=== PATIENT | female | born 1970 | race Caucasian/White ===

== ENCOUNTER → 2016-11-17 | Outpatient (CLI) | payer BC ==
--- NOTE | 2016-11-17 11:19 | RADIOLOGY REPORT (SQ) ---
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 TECHNIQUE: Supine radiographic image of the abdomen acquired. LIMITATIONS: None. FINDINGS: BOWEL GAS PATTERN: Normal bowel gas pattern. No dilated loops. No significant constipatio n. CALCIFICATIONS: No suspicious calcifications. SOFT TISSUES: No gross mass or suggestion of organomegaly. HARDWARE: Clips right upper quadrant post cholecystectomy. BONES: No acute fracture. No worrisome bone lesions. OTHER: No other significant finding. IMPRESSION: Grossly nonobstructive bowel gas pattern. Clips right upper quadrant post cholecystectomy TECHNICAL DOCUMENTATION: JOB ID: [id number] [employer]- All Rights Reserved
== END ==
LOC: OD 10:42
PROVIDERS: ATTEND Internal Medicine Gastroenterology
DX: K50.10 Crohn's disease of large intestine without complications (principal); K59.01 Slow transit constipation
CPT/HCPCS: 74000

== ENCOUNTER → 2016-11-23 | Outpatient (CLI) | payer BC ==
--- NOTE | 2016-11-27 11:59 | RADIOLOGY REPORT (SQ) ---
EXAM DESCRIPTION: CT ABD/PELVIS WITH IV ORAL COMPLETED DATE/TIME: 11/23/2016 8:50 am REASON FOR STUDY: RLQ PAIN (R10.31), CROHN'S DISEASE (K50.10), CONSTIPATION (K59.01) R10.31 RIGHT L OWER QUADRANT PAIN K50.10 CROHN'S DISEASE OF LARGE INTESTINE WITHOUT COMPLICATION K59.01 SLOW TRANS IT CONSTIPATION COMPARISON: None. TECHNIQUE: CT scan of the abdomen and pelvis performed using helical scanning technique with dynamic intravenous contrast injection. Oral contrast. Images reviewed with lung, soft tissue, and bone win dows. Reconstructed coronal and sagittal MPR images reviewed. Delayed images for evaluation of the ur inary system also acquired. All images stored on PACS. All CT scanners at this facility use dose modulation, iterative reconstruction, and/or weight based d osing when appropriate to reduce radiation dose to as low as reasonably achievable (ALARA). [facility]: Dose Right [facility]: CareDose [facility]: Dose Right [facility]: Teradose 4D [facility]: [employer] CONTRAST TYPE AND DOSE: contrast/concentration: Isovue 370.00 mg/ml; Total Contrast Delivered: 100.0 ml; Total Saline Delivered: 72.0 ml RENAL FUNCTION: None required. The patient is less than 50 years old. RADIATION DOSE: Up-to-date CT equipment and radiation dose reduction techniques were employed. CTDIv ol: 10.6 - 12.0 mGy. DLP: 1265 mGy-cm.. LIMITATIONS: None. FINDINGS: LOWER CHEST: No significant findings. No nodules or infiltrates. LIVER: Normal size. No masses. No dilated ducts. SPLEEN: Normal size. No focal lesions. PANCREAS: No masses. No significant calcifications. No adjacent inflammation or peripancreatic fluid collections. Pancreatic duct not dilated. GALLBLADDER: Surgically absent. ADRENAL GLANDS: No significant masses or asymmetry. RIGHT KIDNEY AND URETER: No solid masses. No significant calcifications. No hydronephrosis or hyd roureter. LEFT KIDNEY AND URETER: No solid masses. No significant calcifications. No hydronephrosis or hydr oureter. AORTA AND VESSELS: No aneurysm. No dissection. Renal arteries, SMA, celiac without stenosis. RETROPERITONEUM: No retroperitoneal adenopathy, hemorrhage or masses. BOWEL AND PERITONEAL CAVITY: There is an area of thickening of the wall of the sigmoid colon. This i s seen best on image 77 of the axial series. APPENDIX: Not identified. PELVIS: The uterus is absent. There is is 37 mm right adnexal cyst. ABDOMINAL WALL: No masses. No hernias. BONES: No significant or acute findings. OTHER: No other significant finding. IMPRESSION: 1. There is thickening of a section of the sigmoid colon consistent with history of Slipper Maker hn's disease. 2. There is a 37 mm right adnexal cyst. TECHNICAL DOCUMENTATION: JOB ID: [id number] Quality ID # [id number]: Final reports with documentation of one or more dose reduction techniques (e.g., Au tomated exposure control, adjustment of the mA and/or kV according to patient size, use of iterative reconstruction technique) 2010 [employer]- All Rights Reserved
== END ==
LOC: RAD 08:00
PROVIDERS: ATTEND Internal Medicine Gastroenterology
DX: R10.31 Right lower quadrant pain (principal); K50.10 Crohn's disease of large intestine without complications; K59.01 Slow transit constipation
CPT/HCPCS: 74177

== ENCOUNTER 2018-04-25 22:01 | Emergency (ER) | payer BC ==
[2018-04-25] MEDS ORDERED: ONDANSETRON HCL INJ/PF 4 MG/2 ML SDV IV ONE (22:59)
[2018-04-25] MEDS ORDERED: NORMAL SALINE 1000 ML 1,000 ML IV ONE (22:59)
[2018-04-25] MEDS ORDERED: DICYCLOMINE HCL INJ 20 MG/2 ML AMPULE IM ONE (22:59)
[2018-04-25 23:39] LABS: ABSOLUTE BASOPHILS # (AUTO) 0.1 10^3/uL (0.0-0.2); ABSOLUTE EOSINOPHILS # (AUTO) 0.1 10^3/uL (0.0-0.6); ABSOLUTE LYMPHOCYTES (AUTO) 2.5 10^3/uL (0.5-4.7); ABSOLUTE MONOCYTES (AUTO) 0.7 10^3/uL (0.1-1.4); ABSOLUTE NEUT (AUTO) 6.8 10^3/uL (1.7-8.2); EOSINOPHILS % (AUTO) 1.1 % (0-6); HEMATOCRIT 38.3 % (36.0-47.0); HEMOGLOBIN 13.1 g/dL (12.0-15.5); LYMPHOCYTES % (AUTO) 24.7 % (13-45); MEAN CORPUSCULAR HEMOGLOBIN 32.4 pg (27.0-33.4); MEAN CORPUSCULAR HGB CONC 34.2 g/dL (32.0-36.0); MEAN CORPUSCULAR VOLUME 95 fl (80-97); MONOCYTES % (AUTO) 6.7 % (3-13); PLATELET COUNT 216 10^3/uL (150-450); RED BLOOD COUNT 4.05 10^6/uL (3.72-5.28); RED CELL DISTRIBUTION WIDTH 13.9 % (11.5-14.0); SEGMENTED NEUTROPHILS % (AUTO) 66.5 % (42-78); TOTAL CELLS COUNTED % (AUTO) 100 %; WHITE BLOOD COUNT 10.2 10^3/uL (4.0-10.5)
[2018-04-25] MEDS ORDERED: MORPHINE SULFATE 10 MG/ML INJ IV ONE (23:42)
[2018-04-25 23:51] LABS: APPEARANCE,URINE CLEAR; BILIRUBIN,URINE NEGATIVE (NEGATIVE); COLOR,URINE STRAW; GLUCOSE, URINE NEGATIVE (NEGATIVE); KETONES,URINE NEGATIVE (NEGATIVE); LEUKOCYTE ESTERASE,URINE NEGATIVE (NEGATIVE); NITRITE,URINE NEGATIVE (NEGATIVE); PROTEIN,URINE NEGATIVE (NEGATIVE); URINE SPECIFIC GRAVITY 1.008; UROBILINOGEN,URINE NEGATIVE mg/dL (<2.0)
[2018-04-25 23:57] LABS: ALANINE AMINOTRANSFERASE 79 U/L (9-52); ALBUMIN 4.2 g/dL (3.5-5.0); ALKALINE PHOSPHATASE 84 U/L (38-126); ANION GAP 8 (5-19); ASPARTATE AMINO TRANSFERASE 47 U/L (14-36); BILIRUBIN,DIRECT 0.1 mg/dL (0.0-0.4); BLOOD UREA NITROGEN 17 mg/dL (7-20); CALCIUM 9.7 mg/dL (8.4-10.2); CARBON DIOXIDE 27 mmol/L (22-30); CHLORIDE 104 mmol/L (98-107); GLUCOSE 81 mg/dL (75-110); POTASSIUM 4.1 mmol/L (3.6-5.0); SODIUM 138.9 mmol/L (137-145); TOTAL PROTEIN 7.1 g/dL (6.3-8.2)
--- NOTE | 2018-04-26 01:18 | RADIOLOGY REPORT (SQ) ---
EXAM DESCRIPTION: CT ABDOMEN PELVIS WITH IV CONTRAST COMPLETED DATE/TME: 04/26/2018 00:00 CLINICAL HISTORY: 47 years, Female, abdominal pain COMPARISON: 11/23/2016 TECHNIQUE: Axial CT images of the abdomen and pelvis were obtained after the administration of IV and oral contrast. Sagittal and coronal reformats were performed. [facility] 1677 Images stored on PACS. All CT scanners at this facility use dose modulation, iterative reconstruction, and/or weight based dosing when appropriate to reduce radiation dose to as low as reasonably achievable (ALARA). [facility]: Dose Right [facility]: CareDose [facility]: Dose Right [facility]: Teradose 4D [facility]: [employer] LIMITATIONS: None. FINDINGS: The lung bases are clear. Cholecystectomy. The liver, pancreas, spleen, and adrenal glands are unremarkable. Both kidneys appear unremarkable with no evidence of hydronephrosis or hydroureter. There is no intraperitoneal free air or fluid. There is no lymphadenopathy. The abdominal aorta is normal in caliber. There is a moderate size hiatal hernia. The small bowel is unremarkable. The appendix is not uniquely identified, however there are no pericecal inflammatory changes. The colon contains a moderate amount of stool. There is marked distention of the rectum with stool with minimal adjacent stranding. Hysterectomy. The urinary bladder is unremarkable. There are no lytic or blastic bone lesions. IMPRESSION: Marked distention of the rectum with stool with mild adjacent stranding, suggestive of mild inflammation. Moderate size hiatal hernia. TECHNICAL DOCUMENTATION: Quality ID # 436: Final reports with documentation of one or more dose reduction techniques (e.g., Automated exposure control, adjustment of the mA and/or kV according to patient size, use of iterative reconstruction technique) copyright 2011 [employer]- All Rights Reserved
[2018-04-26] MEDS ORDERED: MORPHINE SULFATE 10 MG/ML INJ IV ONE (01:54)
[2018-04-26] MEDS ORDERED: LIDOCAINE 2% JELLY 5 ML TUBE TOP ONE (01:54)
[2018-04-26] MEDS ORDERED: MINERAL OIL 30 ML UDCUP PR ONE (03:37)
--- NOTE | 2018-04-26 03:39 | ER Document Report ---
ED General - General Chief Complaint: Lower Abdominal Pain Stated Complaint: ABDOMINAL PAIN Time Seen by Provider: 04/25/18 22:43 Primary Care Provider: DINAH COLEMAN MD [Primary Care Provider] - Follow up in 3-5 days Notes: Patient is a pleasant 47-year-old female presents with complaint of some abdominal cramping type pain in the pelvic and lower abdomen area. She says she feels like the blood pressure pushing into her rectal area. She has also noticed some blood coming from her stool. She said that she is had watery stools now for a few weeks. She saw her GI doctor, Dr. Santoyo. She has a history of Crohn's and IBS. He placed her on steroids. He also placed her Clobetasol. She denies any fevers. No vomiting. No other complaints at this time. No history of fistulas or significant comp occasions from her Crohn's. TRAVEL OUTSIDE OF THE [place] IN LAST 30 DAYS: No - Related Data Allergies/Adverse Reactions: No Known Allergies Allergy (Verified 04/25/18 22:14) Past Medical History - Social History Smoking Status: Never Smoker Chew tobacco use (# tins/day): No Frequency of alcohol use: None Drug Abuse: None Family History: Reviewed & Not Pertinent Patient has suicidal ideation: No Patient has homicidal ideation: No - Past Medical History Cardiac Medical History: Denies: Hx Pulmonary Embolism Pulmonary Medical History: Reports: Hx Asthma - Last attack 1990, Hx Bronchitis - May 2011 Denies: Hx COPD, Hx Pneumonia, Hx Respiratory Failure, Hx Sleep Apnea, Hx Tuberculosis Neurological Medical History: Denies: Hx Seizures Renal/ Medical History: Reports: Hx Ovarian Cysts. Denies: Hx Peritoneal Dialysis, Hx Pelvic Inflammatory Disease Malignancy Medical History: Denies: Hx Breast Cancer, Hx Cervical Cancer, Hx Leukemia, Hx Lung Cancer, Hx Ovarian Cancer GI Medical History: Reports: Hx Crohn's Disease, Hx Irritable Bowel Traumatic Medical History: Reports: Hx Fractures - Rt ankle 4th grade Infectious Medical History: Denies: Hx HIV Past Surgical History: Reports: Hx Cholecystectomy, Hx Tubal Ligation. Denies: Hx Pacemaker Review of Systems - Review of Systems Notes: My Normal Review Basic REVIEW OF SYSTEMS: CONSTITUTIONAL : Denies fever, chills, or sweats. Denies recent illness. EENT: Denies eye, ear, throat, or mouth pain or symptoms. Denies nasal or sinus congestion. CARDIOVASCULAR: Denies chest pain. RESPIRATORY: Denies cough, cold, or chest congestion. Denies shortness of breath, difficulty breathing, or wheezing. GASTROINTESTINAL: Cramping type pain in lower abdomen. Some blood in stool. GENITOURINARY: Denies difficulty urinating, painful urination, burning, frequency, or blood in urine. MUSCULOSKELETAL: Denies neck or back pain or joint pain or swelling. SKIN: Denies rash or skin lesions. NEUROLOGICAL: Denies altered mental status or loss of consciousness. Denies headache. Denies weakness or paralysis or loss of use of either side. Denies problems with gait or speech. Denies sensory or motor loss. ALL OTHER SYSTEMS REVIEWED AND NEGATIVE. Physical Exam - Vital signs Vitals: Temp Pulse Resp BP Pulse Ox 97.5 F 89 20 159/100 H 100 04/25/18 22:13 04/25/18 22:13 04/25/18 22:13 04/25/18 22:13 04/25/18 22:13 - Notes Notes: General Appearance: Well nourished, alert, cooperative, no acute distress, m oderate obvious discomfort. Vitals: reviewed, See vital signs table. Head: no swelling or tenderness to the head Eyes: PERRL, EOMI, Conjuctiva clear Mouth: No decreasd moisture Lungs: No wheezing, No rales, No rhonci, No accessory muscle use, good air exchange bilaterally. Heart: Normal rate, Regular rythm, No murmur, no rub Abdomen: Normal BS, soft, No rigidity, No abdominal tenderness, No guarding, no rebound, no abdominal masses, no organomegaly Rectal: Large claylike stool ball on digital rectal exam with streaks of maroon colored stool. Extremities: strength 5/5 in all extremities, good pulses in all extremities, no swelling or tenderness in the extremities, no edema. Skin: warm, dry, appropriate color, no rash Neuro: speech clear, oriented x 3, normal affect, responds appropriately to questions. Course - Re-evaluation Re-evalutation: 04/26/18 03:[address] scan she does have a large stool ball that is causing fecal impaction of the rectum. This is likely why she is having diarrhea as she is probably just having liquid stools going around this large stool ball in the rectum. I did do a rectal exam. She does have some maroon colored stools. I therefore did a gentle digital disimpaction and was able to get out some stool and break out a lot of stools in the rectum. I feel that it is appropriate to do a enema at this time. Informed the patient that if she is having significant pressure pain on enema than to have the nurse stop right away and to release of fluid. I informed her that this is not uncomfortable than to hold the fluid as long as she can to hopefully help relieve this fecal impaction. 04/26/18 06:51 After the enema I did do some further digital disimpaction was able to get a significant amount of stool. Patient's not having any further blood in the rectum. There is just some maroon colored blood on the initial distal aspect of stool that was coming from the rectum. She again has no further bleeding at this time. Her pain is much improved she says she feels some relief. Informed her she still has stool in her rectum. We will place her on Colace suppositories and have her take an fibrous augmentation and drink water. I will have her continue medications as prescribed by her doctor for her Crohn's. Encouraged to call her GI doctor today for close follow-up appointment. I informed her that she should still have a very low threshold to return to ER if she has recurrent bleeding from her rectum, recurring pain, fevers, or if she feels she is worsening in any way. Patient agrees with plan will be discharged home. Dictation of this chart was performed using voice recognition software; therefore, there may be some unintended grammatical errors. - Vital Signs Vital signs: Temp Pulse Resp BP Pulse Ox 97.9 F 73 17 120/80 97 04/26/18 06:34 04/26/18 06:34 04/26/18 06:34 04/26/18 06:34 04/26/18 06:34 - Laboratory Result Diagrams: 04/25/18 23:25 04/25/18 23:25 Laboratory results interpreted by me: 04/25/18 04/25/18 23:25 23:29 AST 47 H ALT 79 H Urine Blood SMALL H Discharge - Discharge Clinical Impression: Fecal impaction in rectum, Abdominal pain, Hematochezia Condition: Good Disposition: HOME, SELF-CARE Additional Instructions: You have a large amount of stool in the rectum causing a impaction in the rectum. We cleared some of this with an enema and also with manual disimpaction. Hopefully you will have several bowel movements over the next 24 hours. Please use a glycerin suppository as prescribed. Please drink lots of water. Avoid caffeinated liquids. Avoid fried foods and fatty foods. Please take Metamucil once a day. Please call your GI physician, Dr. Santoyo, to make a close follow-up appointment. Please have a low threshold to return to the ER if you have recurrent blood coming from your rectum, worsening pain, feve rs, or feel that you are worsening in any way. Prescriptions: RX: Glycerin 1 each RC BID #[id number] supp.rect Forms: Special Work Note, Return to Work Referrals: DINAH COLEMAN MD [Primary Care Provider] - Follow up in 3-5 days
[2018-04-26 06:37] VITALS: BP 120/80
== END 2018-04-26 06:38 | disposition home or self-care (01) ==
LOC: ER 22:01
DX: K56.41 Fecal impaction (principal); K92.1 Melena; R10.30 Lower abdominal pain, unspecified; R10.2 Pelvic and perineal pain; R19.7 Diarrhea, unspecified; Z90.49 Acquired absence of other specified parts of digestive tract; Z98.51 Tubal ligation status
CPT/HCPCS: 96376; 99284; 96361; 96374; 96375; 36415; 83690; 85025; 80053; 81001; 74177; J0500; J3490; J2270; J2405; J7030

== ENCOUNTER 2019-05-07 08:34 | Emergency (ER) | payer BC ==
[2019-05-07] MEDS ORDERED: ALBUTEROL SULFATE HFA (90 MCG/PUFF) 8 GM MDI (1 MDI/ER DISP) IH ONE (09:06)
[2019-05-07] MEDS ORDERED: ACETAMINOPHEN 325 MG TABLET PO ONE (09:08)
--- NOTE | 2019-05-07 09:11 | ER Document Report ---
ED Medical Screen (RME) - General Chief Complaint: Breathing Difficulty Stated Complaint: DIFFICULTY BREATHING Time Seen by Provider: 05/07/19 09:06 Primary Care Provider: DINAH COLEMAN MD [Primary Care Provider] - Follow up as needed Mode of Arrival: Ambulatory Information source: Patient Notes: 48-year-old female with history of asthma Crohn's IBS and pneumonia presents emergency department with complaints of chest heaviness that started last night. She also complains of a headache for the past 3 days. She reports it does not feel like her typical headache related to allergies. She has used Flonase and her inhaler without relief of symptoms. Denies COVID exposure. Patient reports she works at [employer] and they have been utilizing social Unbxdancing but they did have a possible exposure recently. Patient reports she was nowhere near the person. Denies fever vomiting reports some diarrhea but that is normal due to her IBS and Crohn's. I have greeted and performed a rapid initial assessment of this patient. A comprehensive ED assessment and evaluation of the patient, analysis of test results and completion of the medical decision making process will be conducted by additional ED providers. TRAVEL OUTSIDE OF THE [place] IN LAST 30 DAYS: No - Related Data Allergies/Adverse Reactions: No Known Allergies Allergy (Verified 05/07/19 08:50) Past Medical History - Past Medical History Cardiac Medical History: Denies: Hx Pulmonary Embolism Pulmonary Medical History: Reports: Hx Asthma - Last attack 1990, Hx Bronchitis - May 2011 Denies: Hx COPD, Hx Pneumonia, Hx Respiratory Failure, Hx Sleep Apnea, Hx Tuberculosis Neurological Medical History: Denies: Hx Seizures Renal/ Medical History: Reports: Hx Ovarian Cysts. Denies: Hx Peritoneal Dialysis, Hx Pelvic Inflammatory Disease Malignancy Medical History: Denies: Hx Breast Cancer, Hx Cervical Cancer, Hx Leukemia, Hx Lung Cancer, Hx Ovarian Cancer GI Medical History: Reports: Hx Crohn's Disease, Hx Irritable Bowel Traumatic Medical History: Reports: Hx Fractures - Rt ankle 4th grade Infectious Medical History: Denies: Hx HIV Past Surgical History: Reports: Hx Cholecystectomy, Hx Tubal Ligation. Denies: Hx Pacemaker Physical Exam - Vital signs Vitals: Temp Pulse Resp BP Pulse Ox 97.9 F 78 18 146/88 H 98 05/07/19 08:34 05/07/19 08:34 05/07/19 08:34 05/07/19 08:34 05/07/19 08:34 Course - Vital Signs Vital signs: Temp Pulse Resp BP Pulse Ox 97.9 F 78 18 146/88 H 98 05/07/19 08:34 05/07/19 08:34 05/07/19 08:34 05/07/19 08:34 05/07/19 08:34 Doctor's Discharge - Discharge Referrals: DINAH COLEMAN MD [Primary Care Provider] - Follow up as needed
--- NOTE | 2019-05-07 09:48 | ER Document Report ---
ED General - General Chief Complaint: Breathing Difficulty Stated Complaint: DIFFICULTY BREATHING Time Seen by Provider: 05/07/19 09:06 Primary Care Provider: DINAH COLEMAN MD [Primary Care Provider] - Follow up as needed Mode of Arrival: Ambulatory TRAVEL OUTSIDE OF THE [place] IN LAST 30 DAYS: No - HPI Notes: This is a 48-year-old female with history of asthma Crohn's IBS and pneumonia presents emergency department with complaints of chest heaviness that started last night. She also complains of a headache for the past 3 days. She reports it does not feel like her typical headache related to allergies. She has used Flonase and her inhaler without relief of symptoms. Denies COVID exposure. She denies fever or vomiting. Reports some diarrhea but that is normal due to her IBS and Crohn's. Patient is using a Flonase and Ventolin inhaler. She is on Humira for her Crohn's disease. - Related Data Allergies/Adverse Reactions: No Known Allergies Allergy (Verified 05/07/19 08:50) Past Medical History - General Information source: Patient - Social History Smoking Status: Never Smoker Family History: Reviewed & Not Pertinent Patient has suicidal ideation: No Patient has homicidal ideation: No - Past Medical History Cardiac Medical History: Denies: Hx Pulmonary Embolism Pulmonary Medical History: Reports: Hx Asthma - Last attack 1990, Hx Bronchitis - May 2011 Denies: Hx COPD, Hx Pneumonia, Hx Respiratory Failure, Hx Sleep Apnea, Hx Tuberculosis Neurological Medical History: Denies: Hx Seizures Renal/ Medical History: Reports: Hx Ovarian Cysts. Denies: Hx Peritoneal Dialysis, Hx Pelvic Inflammatory Disease Malignancy Medical History: Denies: Hx Breast Cancer, Hx Cervical Cancer, Hx Leukemia, Hx Lung Cancer, Hx Ovarian Cancer GI Medical History: Reports: Hx Crohn's Disease, Hx Irritable Bowel Traumatic Medical History: Reports: Hx Fractures - Rt ankle 4th grade Infectious Medical History: Denies: Hx HIV Past Surgical History: Reports: Hx Cholecystectomy, Hx Hysterectomy, Hx Tubal Ligation. Denies: Hx Pacemaker Review of Systems - Review of Systems Notes: Constitutional: Negative for fever. HENT: Negative for sore throat. Eyes: Negative for visual changes. Cardiovascular: As per HPI. Respiratory: As per HPI. Gastrointestinal: As per HPI. Genitourinary: Negative for dysuria. Musculoskeletal: Negative for back pain. Skin: Negative for rash. Neurological: Negative for headaches, weakness or numbness. 10 point ROS negative except as marked above and in HPI. Physical Exam - Vital signs Vitals: Temp Pulse Resp BP Pulse Ox 97.9 F 78 18 146/88 H 98 05/07/19 08:34 05/07/19 08:34 05/07/19 08:34 05/07/19 08:34 05/07/19 08:34 - Notes Notes: GENERAL: Well-developed well-nourished appearing in no acute distress. SKIN: Good turgor no rashes. HEAD: Normocephalic atraumatic. EYES: PERRLA. EOMI. Conjunctivae and sclerae clear. EARS: CANALS AND TMS CLEAR. NOSE: CLEAR. MOUTH: Moist mucosa. Good dentition. No stridor or edema. No drooling. NECK: Supple. No masses or thyromegaly. No adenopathy. Carotids 2+ without bruits. No JVD. BACK: Symmetrical without tenderness. CHEST: Respirations unlabored. Breath sounds clear and symmetrical. HEART: Regular rhythm. No murmur gallop or rub. ABDOMEN: Soft nontender without masses, organomegaly or rebound. Bowel sounds normally active. No bruits. GENITALIA: Deferred. EXTREMITIES: No edema. No calf tenderness. Cap refill less than 1.5 seconds. Dorsalis pedis and posterior tibial pulses 3+ and symmetrical. NEUROLOGICAL: GCS 15. Alert and oriented x3. Normal gait. Fluent speech. Cranial nerves II through XII intact. Sensorimotor and cerebellar normal. Normal tone. PSYCHIATRIC: Appropriate affect. Course - Re-evaluation Re-evalutation: 05/07/19 11:14 CBC and chemistry profile unremarkable. Hemodynamically stable and afebrile. Normal room air oxygenation. This is a high risk patient because of her history of asthma and being on mild immunosuppression for her inflammatory bowel dis ease. Chest x-ray looks fine. Wheezes quickly improved with administration of metered-dose inhaler. She has been working in a high risk environment in a public place in a local [employer]. After considering all these factors I am going to do a screening test for Covid 19. I talked with patient at some length about other interventions. We have agreed that I will place her on a Z-Bubba and give her oral prednisone and have her continue to use albuterol metered-dose inhaler. She will self isolate. - Vital Signs Vital signs: Temp Pulse Resp BP Pulse Ox 97.9 F 78 18 146/88 H 98 05/07/19 08:34 05/07/19 08:34 05/07/19 08:34 05/07/19 08:34 05/07/19 08:34 - Laboratory Result Diagrams: 05/07/19 09:52 05/07/19 09:52 Laboratory results interpreted by me: 05/07/19 05/07/19 09:52 09:52 Eos % (Auto) 6.3 H Sodium 136.4 L - EKG Interpretation by Me Additional EKG results interpreted by me: 05/07/19 09:48 Twelve-lead EKG from 0913 hrs. reviewed contemporaneously by me demonstrating normal sinus rhythm with a rate of 65, normal QRS axis of 49 degrees. Normal intervals. No acute ST/T wave changes. Discharge - Discharge Clinical Impression: Asthma exacerbation Condition: Stable Disposition: HOME, SELF-CARE Additional Instructions: Self-isolation at home and telephone follow-up with your primary care provider. Return here immediately as needed for new or worsening symptoms. Prescriptions: Prednisone [Deltasone 20 mg Tablet] 2 tab PO DAILY 5 Days tablet Azithromycin [Zithromax 250 mg Tablet] 250 mg PO ASDIR PRN #6 tablet PRN Reason: Referrals: DINAH COLEMAN MD [Primary Care Provider] - Follow up as needed
--- NOTE | 2019-05-07 09:49 | RADIOLOGY REPORT (SQ) ---
EXAM DESCRIPTION: CHEST SINGLE VIEW COMPLETED DATE/TIME: 05/07/2019 9:40 am REASON FOR STUDY: chest heavy COMPARISON: None. NUMBER OF VIEWS: One view. TECHNIQUE: Single frontal radiographic view of the chest acquired. LIMITATIONS: None. FINDINGS: LUNGS AND PLEURA: No opacities, masses or pneumothorax. No pleural effusion. MEDIASTINUM AND HILAR STRUCTURES: No masses. Contour normal. HEART AND VASCULAR STRUCTURES: Heart normal in size. Normal vasculature. BONES: No acute findings. HARDWARE: None in the chest. OTHER: No other significant finding. IMPRESSION: NO SIGNIFICANT RADIOGRAPHIC FINDING IN THE CHEST. TECHNICAL DOCUMENTATION: JOB ID: [id number] 2010 [employer]- All Rights Reserved Reading location - IP/workstation name: [email or web address]
[2019-05-07 10:09] LABS: ABSOLUTE BASOPHILS # (AUTO) 0.1 10^3/uL (0.0-0.2); ABSOLUTE EOSINOPHILS # (AUTO) 0.4 10^3/uL (0.0-0.6); ABSOLUTE LYMPHOCYTES (AUTO) 1.9 10^3/uL (0.5-4.7); ABSOLUTE MONOCYTES (AUTO) 0.4 10^3/uL (0.1-1.4); ABSOLUTE NEUT (AUTO) 3.2 10^3/uL (1.7-8.2); BASOPHILS % (AUTO) 1.3 % (0-2); EOSINOPHILS % (AUTO) 6.3 % (0-6); HEMATOCRIT 42.4 % (36.0-47.0); HEMOGLOBIN 14.6 g/dL (12.0-15.5); LYMPHOCYTES % (AUTO) 31.9 % (13-45); MEAN CORPUSCULAR HEMOGLOBIN 32.8 pg (27.0-33.4); MEAN CORPUSCULAR HGB CONC 34.4 g/dL (32.0-36.0); MEAN CORPUSCULAR VOLUME 95 fl (80-97); MONOCYTES % (AUTO) 6.4 % (3-13); PLATELET COUNT 200 10^3/uL (150-450); RED BLOOD COUNT 4.45 10^6/uL (3.72-5.28); RED CELL DISTRIBUTION WIDTH 13.9 % (11.5-14.0); SEGMENTED NEUTROPHILS % (AUTO) 54.1 % (42-78); TOTAL CELLS COUNTED % (AUTO) 100 %; WHITE BLOOD COUNT 5.9 10^3/uL (4.0-10.5)
[2019-05-07 10:22] LABS: A TYPE INFLUENZA AG NEGATIVE (NEGATIVE); B INFLUENZA AG NEGATIVE (NEGATIVE)
[2019-05-07 10:31] LABS: ALBUMIN 4.2 g/dL (3.5-5.0); ALKALINE PHOSPHATASE 65 U/L (38-126); ANION GAP 8 (5-19); ASPARTATE AMINO TRANSFERASE 30 U/L (14-36); BILIRUBIN,DIRECT 0.1 mg/dL (0.0-0.4); BILIRUBIN,TOTAL 1.2 mg/dL (0.2-1.3); BLOOD UREA NITROGEN 17 mg/dL (7-20); CALCIUM 9.8 mg/dL (8.4-10.2); CARBON DIOXIDE 27 mmol/L (22-30); CHLORIDE 101 mmol/L (98-107); GLUCOSE 87 mg/dL (75-110); POTASSIUM 4.9 mmol/L (3.6-5.0); TOTAL PROTEIN 7.8 g/dL (6.3-8.2)
--- NOTE | 2019-05-07 11:23 | EKG REPORT ---
SEVERITY:- NORMAL ECG - SINUS RHYTHM : Confirmed by: Dannie Mock MD 07-May-2019 11:22:16
[2019-05-07 12:14] VITALS: BP 134/88
== END 2019-05-07 11:45 | disposition home or self-care (01) ==
LOC: ER 08:34
DX: J45.901 Unspecified asthma with (acute) exacerbation (principal); R51 Headache; K50.90 Crohn's disease, unspecified, without complications; Z79.899 Other long term (current) drug therapy; Z20.828 Contact with and (suspected) exposure to other viral communicable diseases
CPT/HCPCS: 93005; 99285; 36415; 85025; 87635; 80053; 87804; 71045; 93010; J3490